=== PATIENT | male | born 1970 | race African-American/Black ===

== ENCOUNTER → 2016-06-18 | Outpatient (CLI) | payer BC ==
--- NOTE | 2016-06-18 21:38 | DIAGNOSTIC IMAGING REPORT ---
MRI OF THE CERVICAL SPINE WITHOUT CONTRAST CLINICAL HISTORY: Cervicalgia. COMPARISON: Cervical spine radiographs January 10, 2016. TECHNIQUE: Utilizing a 1.5 Batool magnet and dedicated coil, multiplanar, multiecho imaging of the cervical spine was performed without IV contrast. FINDINGS: There is straightening of the normal cervical lordosis. Vertebral body heights are maintained. Cervical cord signal and caliber are normal. There is no intracanalicular mass or fluid collection. Paravertebral soft tissues are unremarkable. C2-C3: The central canal and the neural foramen are patent. C3-C4: The central canal and right neural foramen are patent. There is mild narrowing of the left neural foramen. C4-C5: There is a small central disc protrusion. This results in mild narrowing of the central canal. There is moderate to severe narrowing of the left neural foramen due to uncovertebral hypertrophy and facet arthrosis. C5-C6: A right paracentral disc protrusion is noted. This results in mild narrowing of the right aspect of the canal. There is moderate left neural foraminal stenosis. C6-C7: There is minimal narrowing of the central canal. There is no neural foraminal stenosis. C7-T1: Central canal and neural foramen are patent. IMPRESSION: 1. Mild multilevel degenerative disc disease with mild multilevel central canal stenosis, as described above. 2. Multilevel neural foraminal stenosis, as described above. Most pronounced at the left C4-C5 neural foramen. 3. Normal cervical cord signal and caliber. Electronically signed by: Cristhian Salcedo M.D. 06/18/2016 9:37 PM Dictated Date/Time: 06/18/2016 9:33 PM
== END | disposition home or self-care (01) ==
LOC: C.MRI 18:38
PROVIDERS: ATTEND Family Medicine
DX: M50.30 Other cervical disc degeneration, unspecified cervical region (principal)

== ENCOUNTER → 2017-02-10 | Outpatient (CLI) | payer BC ==
--- NOTE | 2017-02-10 11:59 | DIAGNOSTIC IMAGING REPORT ---
R KNEES, AP STANDING CLINICAL HISTORY: M25.569 pain COMPARISON: None. DISCUSSION: The bones and joint spaces appear intact. There is no evidence of fracture, dislocation or bony disease. There is no evidence for soft tissue swelling. IMPRESSION: Negative study. The above report was generated using voice recognition software. It may contain grammatical, syntax or spelling errors. Electronically signed by: Armando Roque M.D. 02/10/2017 11:57 AM Dictated Date/Time: 02/10/2017 11:56 AM
--- NOTE | 2017-02-10 12:00 | DIAGNOSTIC IMAGING REPORT ---
R KNEE 3 VIEWS CLINICAL HISTORY: M25.569 pain COMPARISON: None. DISCUSSION: The bones and joint spaces appear intact. There is no evidence of fracture, dislocation or bony disease. There is no evidence for soft tissue swelling. IMPRESSION: Negative study. The above report was generated using voice recognition software. It may contain grammatical, syntax or spelling errors. Electronically signed by: Armando Roque M.D. 02/10/2017 11:58 AM Dictated Date/Time: 02/10/2017 11:58 AM
== END | disposition home or self-care (01) ==
LOC: C.RAD 11:25
PROVIDERS: ATTEND Physician Assistant
DX: M25.569 Pain in unspecified knee (principal)